=== PATIENT | female | born 2005 | race Two or more races ===

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

== ENCOUNTER 2024-02-23 15:38 | Emergency (ER) | payer SELFPAY ==
[2024-02-23] MEDS: Acetaminophen 500 MG Tab PO ONE (16:55)
== END 2024-02-23 16:56 | disposition home or self-care (01) ==
LOC: MW.ED 15:38
DX: H66.91 Otitis media, unspecified, right ear (principal); H61.21 Impacted cerumen, right ear; Z79.899 Other long term (current) drug therapy; Z75.8 Other problems related to medical facilities and other health care; Z88.8 Allergy status to other drugs, medicaments and biological substances
CPT/HCPCS: 99282; A9270

== ENCOUNTER 2024-03-21 02:01 | Emergency (ER) | payer MEDICAID ==
[2024-03-21] MEDS: Ibuprofen 400 MG Tab PO ONE (02:26)
[2024-03-21] MEDS: Acetaminophen 500 MG Tab PO ONE (02:26)
[2024-03-21 03:08] LABS: CORONAVIRUS COVID-19 NAA NEGATIVE (NEGATIVE); INFLUENZA A NAA NEGATIVE (NEGATIVE); INFLUENZA B NAA NEGATIVE (NEGATIVE); RESPIRATORY SYNCYTIAL VIR NAA NEGATIVE (NEGATIVE)
== END 2024-03-21 03:31 | disposition home or self-care (01) ==
LOC: MW.ED 02:01
DX: J06.9 Acute upper respiratory infection, unspecified (principal); J45.909 Unspecified asthma, uncomplicated; Z90.49 Acquired absence of other specified parts of digestive tract; Z88.8 Allergy status to other drugs, medicaments and biological substances; Z75.8 Other problems related to medical facilities and other health care
CPT/HCPCS: 0241U; 87651; 99283; A9270

== ENCOUNTER 2024-04-11 19:45 | Emergency (ER) | payer MEDICAID ==
[2024-04-11] MEDS: Sulfamethoxazole/Trimethoprim 800-160 MG Tab PO STA (21:20)
== END 2024-04-11 21:37 | disposition home or self-care (01) ==
LOC: MW.ED 19:45
DX: L08.9 Local infection of the skin and subcutaneous tissue, unspecified (principal); J45.909 Unspecified asthma, uncomplicated; Z90.49 Acquired absence of other specified parts of digestive tract; Z88.8 Allergy status to other drugs, medicaments and biological substances; Z79.899 Other long term (current) drug therapy; Z75.8 Other problems related to medical facilities and other health care
CPT/HCPCS: 99283; A9270

== ENCOUNTER 2024-04-15 21:34 | Emergency (ER) | payer MEDICAID | END 2024-04-15 22:51 | disposition home or self-care (01) | LOC: MW.ED 21:34 | DX: N93.9 Abnormal uterine and vaginal bleeding, unspecified (principal); M25.551 Pain in right hip; K12.0 Recurrent oral aphthae; R21 Rash and other nonspecific skin eruption; J45.909 Unspecified asthma, uncomplicated; Z90.49 Acquired absence of other specified parts of digestive tract; Z79.899 Other long term (current) drug therapy | CPT/HCPCS: 81025; 99283 ==

== ENCOUNTER 2024-06-17 13:55 | Emergency (ER) | payer MEDICAID | END 2024-06-17 14:58 | disposition home or self-care (01) | LOC: MW.ED 13:55 | DX: K08.89 Other specified disorders of teeth and supporting structures (principal); J45.909 Unspecified asthma, uncomplicated; Z90.49 Acquired absence of other specified parts of digestive tract; Z79.899 Other long term (current) drug therapy; Z75.8 Other problems related to medical facilities and other health care | CPT/HCPCS: 99282 ==

== ENCOUNTER 2024-09-02 05:47 | Emergency (ER) | payer MEDICAID ==
[2024-09-02] MEDS ORDERED: Sodium Chloride 0.9% 20 ML SDV IV PRN (06:04)
[2024-09-02] MEDS ORDERED: Sodium Chloride 0.9% 2.5 ML Syringe FLUSH PRN (06:04)
[2024-09-02] MEDS ORDERED: Sodium Chloride 0.9% 10 ML Syringe FLUSH PRN (06:04)
[2024-09-02] MEDS: Sodium Chloride 0.9% 1,000 ML IV ONE (06:16)
[2024-09-02] MEDS: Ondansetron 4 MG/2 ML SDV IVPUSH ONE (06:16)
[2024-09-02 06:23] LABS: BASOPHILS ABSOLUTE AUTO 0.02 K/uL (0.00-0.20); BASOPHILS PERCENT AUTO 0.2 % (0.0-1.0); EOSINOPHILS ABSOLUTE AUTO 0.03 K/uL (0.00-0.45); EOSINOPHILS PERCENT AUTO 0.4 % (0.0-6.0); HEMATOCRIT 43.2 % (37.0-47.0); HEMOGLOBIN 15.3 g/dL (12.0-16.0); IMMATURE GRAN ABSOLUTE AUTO 0.02 K/uL (0.00-0.05); IMMATURE GRAN PERCENT AUTO 0.2 % (0.0-0.4); LYMPHOCYTES ABSOLUTE AUTO 1.12 K/uL (1.00-4.80); LYMPHOCYTES PERCENT AUTO 13.1 % (24.0-44.0); MEAN CORPUSCULAR HEMOGLOBIN 31.2 pg (28.0-32.0); MEAN CORPUSCULAR HGB CONC 35.4 g/dL (32.0-36.0); MEAN CORPUSCULAR VOLUME 88.2 fL (83.0-99.0); MEAN PLATELET VOLUME 10.7 fL (9.4-12.3); MONOCYTES ABSOLUTE AUTO 0.57 K/uL (0.00-0.80); MONOCYTES PERCENT AUTO 6.7 % (0.0-8.0); NEUTROPHILS ABSOLUTE AUTO 6.81 K/uL (1.80-7.70); NEUTROPHILS PERCENT AUTO 79.4 % (41.0-71.0); PLATELET COUNT,PLT 248 K/uL (150-400); WHITE BLOOD CELL COUNT,WBC 8.57 K/uL (3.9-11.3)
[2024-09-02] MEDS: Simethicone 80 MG Tab.Chew PO ONE (06:29)
[2024-09-02 06:35] LABS: APPEARANCE,URINE SLT CLOUDY; COLOR,URINE YELLOW; GLUCOSE,URINE NEGATIVE (NEGATIVE); KETONES,URINE TRACE mg/dL (NEGATIVE); LEUKOCYTE ESTERASE,URINE NEGATIVE (NEGATIVE); NITRITE,URINE NEGATIVE (NEGATIVE); OCCULT BLOOD,URINE NEGATIVE (NEGATIVE); PH,URINE 5.5 (5.0-8.0); PROTEIN,URINE 30 mg/dL (NEGATIVE); UROBILINOGEN,URINE 0.2 EU/dL (<2.0)
[2024-09-02 06:41] LABS: BILIRUBIN,URINE SMALL (NEGATIVE)
[2024-09-02 06:44] LABS: AMPHETAMINES SCREEN, URINE NEGATIVE (CUTOFF=500); BARBITURATE SCREEN,URINE NEGATIVE (CUTOFF=200); BENZODIAZEPINES SCREEN,URINE NEGATIVE (CUTOFF=150); BUPRENORPHINE SCREEN,URINE NEGATIVE (CUTOFF=10); METHADONE SCREEN, URINE NEGATIVE (CUTOFF=200); METHAMPHETAMINES SCREEN, URINE NEGATIVE (CUTOFF=500); OXYCODONE SCREEN,URINE NEGATIVE (CUT0FF=100); PCP SCREEN,URINE NEGATIVE (CUTOFF=25); THC SCREEN,URINE 20 NG/ML PRESUMPTIVE POSITIVE (CUTOFF=50)
[2024-09-02 06:51] LABS: A/G RATIO 1.3 (0.9-1.6); ALBUMIN 4.3 g/dL (3.4-5.0); BILIRUBIN TOTAL 0.8 mg/dL (0.2-1.0); CALCIUM 9.1 mg/dL (8.5-10.1); CARBON DIOXIDE,CO2 19.8 mmol/L (21.0-32.0); CREATININE 0.9 mg/dL (0.6-1.0); EST CRCL DRUG DOSING (CG) 81.79 mL/min; POTASSIUM,K 3.6 mmol/L (3.5-5.1); PROTEIN TOTAL,TP 7.7 g/dL (6.4-8.2)
[2024-09-02 06:53] LABS: RBC,URINE 0-2 (0-2/HPF)
[2024-09-02 06:54] LABS: AMORPHOUS SEDIMENT,URINE MODERATE (NEGATIVE); BACTERIA,URINE FEW (NEGATIVE); EPITHELIAL CELLS,URINE MODERATE (NONE-FEW); WBC,URINE 0-3 (0-5/HPF)
[2024-09-02] MEDS ORDERED: Naloxone 0.4 MG/ML SDV IVPUSH PRN (07:27)
[2024-09-02] MEDS: Alum Hydrox/Mag Hydrox/Simeth 15 ML, Lidocaine 2% 5 ML PO ONE (07:30)
[2024-09-02] MEDS: fentaNYL 50 MCG/ML SDV IVPUSH ONE (07:31)
[2024-09-02] MEDS: Metoclopramide 10 MG/2 ML SDV IVPUSH ONE (08:11)
[2024-09-02] MEDS: Morphine 2 MG/ML SYRINGE IVPUSH ONE (08:11)
[2024-09-02] MEDS: Dicyclomine 10 MG Cap PO ONE (08:12)
[2024-09-02] MEDS: droPERidol 2.5 MG/ML SDV IVPUSH ONE (08:28)
[2024-09-02] MEDS: Iopamidol 755 MG/ML 500 ML Multipack Bottle IVPUSH STA (08:42)
== END 2024-09-02 10:28 | disposition home or self-care (01) ==
LOC: MW.ED 05:47
DX: R11.2 Nausea with vomiting, unspecified (principal); R19.7 Diarrhea, unspecified; R10.11 Right upper quadrant pain; J45.909 Unspecified asthma, uncomplicated; Z90.49 Acquired absence of other specified parts of digestive tract
CPT/HCPCS: 36415; 74177; 80053; 80305; 81001; 81025; 83605; 83690; 85025; 93005; 96360; 96374; 96375; 99284; A9270; J1790; J2270; J2405; J2765; J3010; J7030; Q9967

== ENCOUNTER 2024-09-05 07:15 | Emergency (ER) | payer MEDICAID ==
[2024-09-05] MEDS ORDERED: Sodium Chloride 0.9% 10 ML Syringe FLUSH PRN (07:51)
[2024-09-05] MEDS ORDERED: Sodium Chloride 0.9% 2.5 ML Syringe FLUSH PRN (07:51)
[2024-09-05] MEDS ORDERED: Sodium Chloride 0.9% 20 ML SDV IV PRN (07:51)
[2024-09-05] MEDS: Sodium Chloride 0.9% 1,000 ML IV ONE (07:57)
[2024-09-05] MEDS: droPERidol 2.5 MG/ML SDV IVPUSH ONE (07:57)
[2024-09-05] MEDS ORDERED: Naloxone 0.4 MG/ML SDV IVPUSH PRN (08:02)
[2024-09-05 08:07] LABS: BASOPHILS ABSOLUTE AUTO 0.01 K/uL (0.00-0.20); BASOPHILS PERCENT AUTO 0.2 % (0.0-1.0); EOSINOPHILS ABSOLUTE AUTO 0.01 K/uL (0.00-0.45); EOSINOPHILS PERCENT AUTO 0.2 % (0.0-6.0); HEMATOCRIT 43.2 % (37.0-47.0); HEMOGLOBIN 15.2 g/dL (12.0-16.0); IMMATURE GRAN ABSOLUTE AUTO 0.07 K/uL (0.00-0.05); IMMATURE GRAN PERCENT AUTO 1.1 % (0.0-0.4); LYMPHOCYTES PERCENT AUTO 16.8 % (24.0-44.0); MEAN CORPUSCULAR HEMOGLOBIN 30.6 pg (28.0-32.0); MEAN CORPUSCULAR HGB CONC 35.2 g/dL (32.0-36.0); MEAN CORPUSCULAR VOLUME 87.1 fL (83.0-99.0); MEAN PLATELET VOLUME 11.3 fL (9.4-12.3); MONOCYTES ABSOLUTE AUTO 0.58 K/uL (0.00-0.80); MONOCYTES PERCENT AUTO 8.8 % (0.0-8.0); NEUTROPHILS ABSOLUTE AUTO 4.79 K/uL (1.80-7.70); NEUTROPHILS PERCENT AUTO 72.9 % (41.0-71.0); PLATELET COUNT,PLT 260 K/uL (150-400); RED BLOOD CELL COUNT 4.96 M/uL (4.10-5.30); WHITE BLOOD CELL COUNT,WBC 6.56 K/uL (3.9-11.3)
[2024-09-05 08:21] LABS: A/G RATIO 1.4 (0.9-1.6); ALBUMIN 4.6 g/dL (3.4-5.0); BILIRUBIN TOTAL 0.6 mg/dL (0.2-1.0); CALCIUM 9.5 mg/dL (8.5-10.1); CARBON DIOXIDE,CO2 25.8 mmol/L (21.0-32.0); EST CRCL DRUG DOSING (CG) 73.61 mL/min; MAGNESIUM 2.1 mg/dL (1.8-2.4); POTASSIUM,K 3.3 mmol/L (3.5-5.1); PROTEIN TOTAL,TP 7.9 g/dL (6.4-8.2)
[2024-09-05] MEDS: HYDROmorphone 0.5 MG/0.5 ML Syringe IVPUSH ONE (09:15)
== END 2024-09-05 09:23 | disposition left against medical advice (07) ==
LOC: MW.ED 07:15
DX: R10.11 Right upper quadrant pain (principal); R11.2 Nausea with vomiting, unspecified; J45.909 Unspecified asthma, uncomplicated; Z90.49 Acquired absence of other specified parts of digestive tract; Z79.899 Other long term (current) drug therapy
CPT/HCPCS: 36415; 80053; 83605; 83690; 83735; 84484; 84703; 85025; 93005; 96361; 96374; 99284; J1790; J7030

== ENCOUNTER 2024-09-06 16:02 | Emergency (ER) | payer MEDICAID | END 2024-09-06 17:16 | disposition left against medical advice (07) | LOC: MW.ED 16:02 | DX: Z53.21 Procedure and treatment not carried out due to patient leaving prior to being seen by health care provider (principal) ==

== ENCOUNTER 2024-09-06 22:59 | Emergency (ER) | payer MEDICAID | END 2024-09-07 03:38 | disposition home or self-care (01) | LOC: MW.ED 22:59 | DX: S30.0XXA Contusion of lower back and pelvis, initial encounter (principal); R20.2 Paresthesia of skin; X58.XXXA Exposure to other specified factors, initial encounter; Y93.89 Activity, other specified | CPT/HCPCS: 99283 ==